=== PATIENT | male | born 1960 | race Caucasian/White ===

== ENCOUNTER 2017-08-16 13:07 | Emergency (ER) | payer BC, MEDICAID ==
[2017-08-16] MEDS ORDERED: IBUPROFEN 600 MG TAB PO ONE (13:20)
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
[2017-08-16 13:49] VITALS: BP 149/89; PULSE 67; RESP 18; TEMP 97.2; O2SAT 92
== END 2017-08-16 14:31 | disposition home or self-care (01) ==
LOC: CED 13:07
DX: S62.613A Displaced fracture of proximal phalanx of left middle finger, initial encounter for closed fracture (principal); S63.92XA Sprain of unspecified part of left wrist and hand, initial encounter; W07.XXXA Fall from chair, initial encounter
CPT/HCPCS: 73130-PO

== ENCOUNTER 2017-12-16 17:28 | Inpatient (IN) | payer OTHER, MEDICAID ==
[2017-12-16] MEDS ORDERED: HYDROmorphONE/DILAUDID 2 MG/ML INJ IVP ONE (17:34)
--- NOTE | 2017-12-16 17:48 | CPEKG ---
Heart Rate: 74 RR Interval: 811 P-R Interval: 172 QRSD Interval: 118 QT Interval: 416 QTC Interval: 462 P [place]: 23 QRS [place]: -43 T Wave [place]: 82 EKG Severity - ABNORMAL ECG - EKG Impression: SINUS RHYTHM EKG Impression: INCOMPLETE RBBB AND LAFB Electronically Signed By: Spenser Hurd 16-Dec-2017 18:42:37
[2017-12-16 18:03] LABS: PLATELET COUNT 147 10^3/uL (150-400)
[2017-12-16] MEDS ORDERED: IOPAMIDOL (ISOVUE-300) 100 ML BTL ONE (18:30)
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
[2017-12-16] MEDS ORDERED: IOPAMIDOL (ISOVUE 370) 100 ML BTL IV ONE (18:37)
[2017-12-16 19:53] LABS: INR 1.23 (0.83-1.16); PROTIME(PATIENT) 15.7 SEC (12.0-15.0)
[2017-12-16] MEDS ORDERED: NALOXONE HCL 0.4 MG/ML INJ IVP PRN ×2 (20:27→20:58)
[2017-12-16] MEDS ORDERED: ONDANSETRON DISINTEGRATING 4 MG TAB PO PRN (20:28)
[2017-12-16] MEDS ORDERED: ONDANSETRON 4 MG/2 ML VIAL IVP PRN ×2 (20:28→21:03)
[2017-12-16] MEDS ORDERED: oxyCODONE IR 5 MG TAB PO PRN ×2 (20:30→21:04)
[2017-12-16] MEDS ORDERED: KETAMINE 500 MG in D5W 500 ML IV SCH (20:30)
[2017-12-16] MEDS ORDERED: IPRATROPIUM/ALBUTEROL 3 ML DEYVIAL IH PRN (20:33)
[2017-12-16] MEDS ORDERED: ALBUTEROL 60 PUFFS/8 GM MDI IH PRN (20:33)
[2017-12-16] MEDS ORDERED: FLUMAZENIL 0.5 MG/5 ML MDV IVP PRN (20:45)
[2017-12-16] MEDS ORDERED: diphenhydrAMINE 25 MG CAP PO PRN (21:01)
[2017-12-16] MEDS: HYDROmorphONE/DILAUDID 6 MG/30 ML PCA IV PRN (21:02)
[2017-12-16] MEDS: THIAMINE HCL 500 MG in NS 100 ML IV SCH (21:15)
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
[2017-12-16] MEDS: ACETAMINOPHEN 500 MG TAB PO SCH (21:49)
[2017-12-16] MEDS: IBUPROFEN 600 MG TAB PO SCH (21:50)
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
[2017-12-16] MEDS: FLUTICASONE/SALMETER 100/50MCG DISKUS IH SCH (22:10)
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
[2017-12-17] MEDS: DEXMEDETOMIDINE HCL 400 MCG in NS 100 ML IV SCH ×2 (01:16→10:52)
[2017-12-17] MEDS: HYDROmorphONE/DILAUDID 6 MG/30 ML PCA IV PRN ×2 (02:29→10:52)
[2017-12-17] MEDS: ACETAMINOPHEN 500 MG TAB PO SCH ×3 (05:50→21:50)
[2017-12-17] MEDS: IBUPROFEN 600 MG TAB PO SCH ×3 (05:50→21:49)
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
[2017-12-17] MEDS ORDERED: ENOXAPARIN 40 MG/0.4 ML SYR SC SCH (09:00)
[2017-12-17] MEDS ORDERED: FOLIC ACID 1 MG TAB PO SCH (09:00)
[2017-12-17] MEDS: FLUTICASONE/SALMETER 100/50MCG DISKUS IH SCH ×2 (09:56→21:13)
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
[2017-12-17] MEDS: THIAMINE HCL 500 MG in NS 100 ML IV SCH (11:03)
[2017-12-17] MEDS: MULTIVITAMINS 1 EACH TAB PO SCH (11:03)
[2017-12-17] MEDS: LISINOPRIL 10 MG TAB PO SCH (11:04)
[2017-12-17] MEDS: LORazepam 2 MG/ML INJ IVP PRN (12:44)
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
[2017-12-18] MEDS: LORazepam 2 MG/ML INJ IVP PRN (04:04)
[2017-12-18] MEDS: IBUPROFEN 600 MG TAB PO SCH ×3 (05:09→22:09)
[2017-12-18] MEDS: ACETAMINOPHEN 500 MG TAB PO SCH (05:16)
[2017-12-18] MEDS: HYDROmorphONE/DILAUDID 6 MG/30 ML PCA IV PRN (08:15)
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
--- NOTE | 2017-12-18 08:56 | SOAPPROG ---
SOAP Progress Note Assessment/Plan: Assessment: Plan: Subjective: pt hasn't been oob yet pe: wheezing morbidly obese abd soft access: mri shows small epidural hematoma- neurosurg says not bad, theywill sign off. pt needs to ambulate with brace, still following for potential dt's. high riks for pe. may go out to floor today if no dt's and ambualtes with assistance Objective: Vital Signs Temp Pulse Resp BP Pulse Ox 36.5 C 80 15 163/83 H 92 12/18/17 04:00 12/18/17 04:00 12/18/17 04:00 12/18/17 04:00 12/18/17 04:00 12/17/17 12/18/17 12/19/17 05:59 05:59 05:59 Intake Total 2102 1230 Output Total 520 700 Balance 1582 530 PT 15.7 SEC (12.0-15.0) H 12/16/17 17:40 INR 1.23 (0.83-1.16) H 12/16/17 17:40 ICD10 Worksheet Patient Problems: Problems Problem Status Onset Paraspinal hematoma Acute Pulmonary contusion Acute Rib fractures Acute T8 vertebral fracture Acute
[2017-12-18] MEDS: FLUTICASONE/SALMETER 100/50MCG DISKUS IH SCH ×2 (09:18→20:04)
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
[2017-12-18] MEDS: THIAMINE HCL 500 MG in NS 100 ML IV SCH (09:59)
[2017-12-18] MEDS: LISINOPRIL 10 MG TAB PO SCH (10:16)
[2017-12-18] MEDS: FOLIC ACID 1 MG TAB PO SCH (10:19)
[2017-12-18] MEDS: MULTIVITAMINS 1 EACH TAB PO SCH (10:33)
[2017-12-18] MEDS: HYDROCODONE/APAP 5/325 TAB PO PRN ×3 (10:38→20:28)
[2017-12-18] MEDS: FAMOTIDINE 20 MG TAB PO SCH (20:28)
[2017-12-18] MEDS ORDERED: LACTULOSE 20 GM/30 ML UDCUP PO PRN (21:34)
[2017-12-18] MEDS ORDERED: BISACODYL 10 MG SUPP PR PRN (21:34)
[2017-12-18] MEDS ORDERED: MAGNESIUM HYDROXIDE 30 ML UDCUP PO PRN (21:34)
[2017-12-19] MEDS: HYDROCODONE/APAP 5/325 TAB PO PRN ×2 (00:34→05:37)
[2017-12-19] MEDS: IBUPROFEN 600 MG TAB PO SCH ×3 (05:36→22:08)
[2017-12-19] MEDS: FLUTICASONE/SALMETER 100/50MCG DISKUS IH SCH ×2 (08:23→22:23)
[2017-12-19] MEDS: IPRATROPIUM/ALBUTEROL 3 ML DEYVIAL IH PRN (08:24)
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
[2017-12-19] MEDS: FAMOTIDINE 20 MG TAB PO SCH (09:56)
[2017-12-19] MEDS: MULTIVITAMINS 1 EACH TAB PO SCH (09:56)
[2017-12-19] MEDS: THIAMINE HCL 100 MG TAB PO SCH (09:57)
[2017-12-19] MEDS: SENNOSIDES/DOCUSATE SODIUM TAB PO SCH ×2 (09:57→22:10)
[2017-12-19] MEDS: LISINOPRIL 10 MG TAB PO SCH (09:58)
[2017-12-19] MEDS: FOLIC ACID 1 MG TAB PO SCH (09:58)
[2017-12-19] MEDS: oxyCODONE IR 5 MG TAB PO PRN ×4 (09:58→22:04)
[2017-12-19] MEDS: ENOXAPARIN 40 MG/0.4 ML SYR SC SCH (10:02)
[2017-12-19] MEDS: ACETAMINOPHEN 325 MG TAB PO PRN (12:19)
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
--- NOTE | 2017-12-19 16:15 | ASMTCMCOM ---
CM Note CM Note Notes: The ULTC-100 was faxed to [facility] today. Date Signed: 12/19/2017 04:14 PM Electronically Signed By:Leandra Alfonso LCSW
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
--- NOTE | 2017-12-19 22:21 | CPEKG ---
Heart Rate: 70 RR Interval: 857 P-R Interval: 180 QRSD Interval: 104 QT Interval: 408 QTC Interval: 441 P [place]: 23 QRS [place]: -27 T Wave [place]: 45 EKG Severity - ABNORMAL ECG - EKG Impression: SINUS RHYTHM Electronically Signed By: Amos Nevarez 20-Dec-2017 11:14:44
[2017-12-19 22:46] LABS: CREATINE KINASE 79 IU/L (0-224)
[2017-12-20] MEDS: FAMOTIDINE 20 MG TAB PO SCH ×5 (00:34→21:53)
[2017-12-20] MEDS: MELATONIN 3 MG TAB PO SCH ×2 (00:34→21:53)
[2017-12-20] MEDS: IPRATROPIUM/ALBUTEROL 3 ML DEYVIAL IH PRN (00:40)
[2017-12-20] MEDS: oxyCODONE IR 5 MG TAB PO PRN ×6 (01:09→21:54)
[2017-12-20] MEDS: IBUPROFEN 600 MG TAB PO SCH ×3 (06:15→21:52)
[2017-12-20] MEDS: POLYETHYLENE GLYCOL 3350 17 GM PKT PO PRN (08:05)
[2017-12-20] MEDS: ENOXAPARIN 40 MG/0.4 ML SYR SC SCH (08:32)
[2017-12-20] MEDS: THIAMINE HCL 100 MG TAB PO SCH (08:33)
[2017-12-20] MEDS: LISINOPRIL 10 MG TAB PO SCH (08:33)
[2017-12-20] MEDS: SENNOSIDES/DOCUSATE SODIUM TAB PO SCH ×2 (08:33→21:52)
[2017-12-20] MEDS: FOLIC ACID 1 MG TAB PO SCH (08:34)
[2017-12-20] MEDS: MULTIVITAMINS 1 EACH TAB PO SCH (08:34)
[2017-12-20] MEDS: FLUTICASONE/SALMETER 100/50MCG DISKUS IH SCH ×2 (08:40→20:14)
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
--- NOTE | 2017-12-20 17:15 | ASMTCMCOM ---
CM Note CM Note Notes: [facility] still needs to assess pt. [facility] referrals [facility] to [facility]. There is still no accepting SNF. Pt does not qualify for [facility] inpatient rehab. Date Signed: 12/20/2017 02:21 PM Electronically Signed By:JAYCEE Spear
[2017-12-20] MEDS: ACETAMINOPHEN 325 MG TAB PO PRN (18:27)
[2017-12-21] MEDS: IPRATROPIUM/ALBUTEROL 3 ML DEYVIAL IH PRN (01:05)
[2017-12-21] MEDS: oxyCODONE IR 5 MG TAB PO PRN ×7 (02:36→23:11)
[2017-12-21] MEDS: IBUPROFEN 600 MG TAB PO SCH ×3 (05:59→23:11)
[2017-12-21] MEDS: SENNOSIDES/DOCUSATE SODIUM TAB PO SCH ×2 (09:00→20:10)
[2017-12-21] MEDS: LISINOPRIL 10 MG TAB PO SCH (09:00)
[2017-12-21] MEDS: MULTIVITAMINS 1 EACH TAB PO SCH (09:00)
[2017-12-21] MEDS: ENOXAPARIN 40 MG/0.4 ML SYR SC SCH (09:00)
[2017-12-21] MEDS: FOLIC ACID 1 MG TAB PO SCH (09:01)
[2017-12-21] MEDS: THIAMINE HCL 100 MG TAB PO SCH (09:01)
[2017-12-21] MEDS: FAMOTIDINE 20 MG TAB PO SCH ×2 (09:01→20:11)
[2017-12-21] MEDS: FLUTICASONE/SALMETER 100/50MCG DISKUS IH SCH ×2 (09:25→19:26)
--- NOTE | 2017-12-21 11:03 | ASMTCMCOM ---
CM Note CM Note Notes: Pt functionally approved today by Jaz with [facility], no level 2 PASRR triggered Still no accepting SNF. [facility] with [facility] to complete on-site today Several other referrals pending. Date Signed: 12/21/2017 11:02 AM Electronically Signed By:JAYCEE Spear
--- NOTE | 2017-12-21 11:53 | SOAPPROG ---
SOAP Progress Note Assessment/Plan: Assessment: Plan: Subjective: complains of back pain. up ambulating with brace Objective: Vital Signs Temp Pulse Resp BP Pulse Ox 36.7 C 62 15 125/80 H 92 12/21/17 11:24 12/21/17 11:24 12/21/17 11:24 12/21/17 11:24 12/21/17 11:24 Laboratory Results 12/19/17 11:10 12/20/17 12/21/17 12/22/17 05:59 05:59 05:59 Intake Total 900 2290 Output Total 1775 725 Balance -875 1565 PT 15.7 SEC (12.0-15.0) H 12/16/17 17:40 INR 1.23 (0.83-1.16) H 12/16/17 17:40 lungs clear abd soft. no acute new issues needs an accepting snf not safe to go home ICD10 Worksheet Patient Problems: Problems Problem Status Onset Paraspinal hematoma Acute Pulmonary contusion Acute Rib fractures Acute T8 vertebral fracture Acute
--- NOTE | 2017-12-21 14:24 | ASMTCMCOM ---
CM Note CM Note Notes: Today [facility] staff assessed pt is over assets to qualify for Medicaid LTC. This means pt will not qualify for a SNF placement under Medicaid. Spoke with pt, mother Miguelina and sister about this. Pt reports he does not want to private pay for any length of time at a SNF. Pt wants to go home with his mother assistance and home health care. Pt will be able to stay on the main level of the home which is described by Miguelina as handicap accessible. Unknown to what extent Miguelina can assist due to her own physical health issues. When asked who will assist with pt brace, both pt and Miguelina indicate Miguelina will assist. Miguelina is provided a list of [employer] companies who rent hospital beds. CM to follow. Date Signed: 12/21/2017 02:24 PM Electronically Signed By:JAYCEE Spear
--- NOTE | 2017-12-21 16:01 | ASMTCAGE ---
CAGE Do you feel you ought to Answers: No cut down on your drinking or drug use? Do people annoy you by Answers: No criticizing your drinking or drug use? Do you feel guilty about Answers: No your drinking or drug use? Do you drink or use drugs Answers: No first thing in the morning ([employer])? Additional Comments Pt declines ETOH resources Date Signed: 12/21/2017 04:00 PM Electronically Signed By:JAYCEE Spear
--- NOTE | 2017-12-21 16:02 | ASMTCMCOM ---
CM Note CM Note Notes: Pt CAGE completed, pt declines ETOH resources. Date Signed: 12/21/2017 04:02 PM Electronically Signed By:JAYCEE Spear
[2017-12-21] MEDS: HYDROCODONE/APAP 5/325 TAB PO PRN (18:41)
[2017-12-21] MEDS: LIDOCAINE 4%/MENTHOL 1% PATCH TD SCH (20:10)
[2017-12-21] MEDS: MELATONIN 3 MG TAB PO SCH (20:11)
[2017-12-22] MEDS: oxyCODONE IR 5 MG TAB PO PRN ×5 (03:53→20:41)
[2017-12-22] MEDS: IBUPROFEN 600 MG TAB PO SCH ×3 (06:19→23:08)
[2017-12-22] MEDS: HYDROCODONE/APAP 5/325 TAB PO PRN (06:19)
[2017-12-22] MEDS: FAMOTIDINE 20 MG TAB PO SCH ×2 (08:27→20:32)
[2017-12-22] MEDS: LISINOPRIL 10 MG TAB PO SCH (08:28)
[2017-12-22] MEDS: SENNOSIDES/DOCUSATE SODIUM TAB PO SCH ×2 (08:29→20:33)
[2017-12-22] MEDS: THIAMINE HCL 100 MG TAB PO SCH (08:29)
[2017-12-22] MEDS: FOLIC ACID 1 MG TAB PO SCH (08:29)
[2017-12-22] MEDS: MULTIVITAMINS 1 EACH TAB PO SCH (08:29)
[2017-12-22] MEDS: ENOXAPARIN 40 MG/0.4 ML SYR SC SCH (08:30)
[2017-12-22] MEDS: POLYETHYLENE GLYCOL 3350 17 GM PKT PO PRN (08:32)
[2017-12-22] MEDS: FLUTICASONE/SALMETER 100/50MCG DISKUS IH SCH ×2 (09:22→20:37)
--- NOTE | 2017-12-22 09:30 | ASMTCMCOM ---
CM Note CM Note Notes: Referral made yesterday to [facility], Charlene alerted and referral sent in [employer]. Date Signed: 12/22/2017 09:30 AM Electronically Signed By:JAYCEE Spear
[2017-12-22] MEDS: PATCH REMOVAL 1 EA PATCH TD SCH (13:04)
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
[2017-12-22] MEDS: MELATONIN 3 MG TAB PO SCH (20:32)
[2017-12-22] MEDS: LIDOCAINE 4%/MENTHOL 1% PATCH TD SCH (20:34)
[2017-12-22] MEDS: ACETAMINOPHEN 325 MG TAB PO PRN (20:42)
[2017-12-23] MEDS: oxyCODONE IR 5 MG TAB PO PRN ×2 (04:20→13:53)
[2017-12-23] MEDS: IBUPROFEN 600 MG TAB PO SCH ×2 (05:27→14:46)
[2017-12-23] MEDS: THIAMINE HCL 100 MG TAB PO SCH (09:37)
[2017-12-23] MEDS: HYDROCODONE/APAP 5/325 TAB PO PRN ×2 (09:37→14:46)
[2017-12-23] MEDS: SENNOSIDES/DOCUSATE SODIUM TAB PO SCH (09:37)
[2017-12-23] MEDS: MULTIVITAMINS 1 EACH TAB PO SCH (09:38)
[2017-12-23] MEDS: FAMOTIDINE 20 MG TAB PO SCH (09:38)
[2017-12-23] MEDS: LISINOPRIL 10 MG TAB PO SCH (09:38)
[2017-12-23] MEDS: ENOXAPARIN 40 MG/0.4 ML SYR SC SCH (09:39)
[2017-12-23] MEDS: FOLIC ACID 1 MG TAB PO SCH (09:39)
[2017-12-23] MEDS: PATCH REMOVAL 1 EA PATCH TD SCH (09:40)
[2017-12-23] MEDS: POLYETHYLENE GLYCOL 3350 17 GM PKT PO PRN (09:40)
[2017-12-23] MEDS: IPRATROPIUM/ALBUTEROL 3 ML DEYVIAL IH PRN (10:10)
[2017-12-23] MEDS: FLUTICASONE/SALMETER 100/50MCG DISKUS IH SCH (10:10)
[2017-12-23 12:21] VITALS: BP 154/83
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
--- NOTE | 2017-12-23 16:26 | ASMTCMCOM ---
CM Note CM Note Notes: Pt medically stable for d/c home with [facility] PT/OT and family support. Orders to be obtained via [employer]. Pt to have Sana brace 6 weeks and follow up with neurosurgery. Pt already has follow up scheduled with PCP. Pt mother to transport home. Date Signed: 12/23/2017 04:26 PM Electronically Signed By:JAYCEE Spear
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
== END 2017-12-23 16:45 | disposition home health service (06) | DRG 552 ==
LOC: EDUNIT# → F2N 20:40 → F3N 12-19 12:32
PROVIDERS: ADMIT Surgery; ATTEND Surgery
PROC: 2W35X3Z Immobilization of Back using Brace (ICD-10-PCS; principal; 2017-12-17)
DX: S22.068A Other fracture of T7-T8 thoracic vertebra, initial encounter for closed fracture (principal); S22.41XA Multiple fractures of ribs, right side, initial encounter for closed fracture; S27.321A Contusion of lung, unilateral, initial encounter; S20.229A Contusion of unspecified back wall of thorax, initial encounter; V43.52XA Car driver injured in collision with other type car in traffic accident, initial encounter; Y92.410 Unspecified street and highway as the place of occurrence of the external cause; I10 Essential (primary) hypertension; J45.909 Unspecified asthma, uncomplicated; F12.920 Cannabis use, unspecified with intoxication, uncomplicated; E66.01 Morbid (severe) obesity due to excess calories; F10.220 Alcohol dependence with intoxication, uncomplicated; G47.33 Obstructive sleep apnea (adult) (pediatric); Z68.41 Body mass index [BMI] 40.0-44.9, adult
CPT/HCPCS: 82947-QW; 92507-GN; 92523-GN; 96374; 97116-GP; 97161-GP; 97165-GO; 97530-GO; 97530-GP; 97535-GO; G0480; J1170; J1650; J2060; J2270; J2405; J3411; Q9967

== ENCOUNTER 2017-12-29 10:19 | Emergency (ER) | payer OTHER, MEDICAID ==
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
[2017-12-29 12:12] VITALS: BP 130/77
== END 2017-12-29 12:11 | disposition home or self-care (01) ==
DX: Z76.0 Encounter for issue of repeat prescription (principal); S22.41XD Multiple fractures of ribs, right side, subsequent encounter for fracture with routine healing; F17.200 Nicotine dependence, unspecified, uncomplicated; X58.XXXD Exposure to other specified factors, subsequent encounter